=== PATIENT | female | born 1950 | race Caucasian/White ===

== ENCOUNTER 2017-06-01 19:08 | Observation (INO) | payer MEDICARE, MEDICAID ==
[~2017-06-01] VITALS: Ht 157.5 cm; Wt 130.0 kg
[~2017-06-01 19:08] MED LIST: HYDR-2768 PO; blood pressure
[2017-06-01 19:10] VITALS: BP 186/96; PULSE 81; RESP 16; TEMP 98.9; O2SAT 97
[2017-06-01 19:55] VITALS: BP 163/67; PULSE 81; RESP 18; O2SAT 97; O2SAT 98
[2017-06-01] MEDS ORDERED: LORazepam 2 MG/ML VIAL IV PUSH ONE (20:00)
[2017-06-01] MEDS ORDERED: TORS10TA2 PO (20:00)
[2017-06-01] MEDS ORDERED: ASPIRIN 325 MG TAB PO ONE (20:00)
--- NOTE | 2017-06-01 20:23 | RADRPT ---
EXAM DATE/TIME: 06/01/2017 20:11 [place] COMPARISON: No previous studies available for comparison. INDICATIONS : Chest pain MEDICAL HISTORY : None. SURGICAL HISTORY : None. ENCOUNTER: Initial ACUITY: 1 week PAIN SCORE: 8/10 LOCATION: chest FINDINGS: A single view of the chest demonstrates the lungs to be symmetrically aerated without evidence of mas s, infiltrate or effusion. The cardiomediastinal contours are unremarkable. Osseous structures are intact. CONCLUSION: No evidence of acute cardiopulmonary disease. Rd Avendano MD on June 01, 2017 at 20:22 Board Certified Radiologist. This report was verified electronically.
[2017-06-01 21:03] LABS: AUTOMATED NEUTROPHIL # 4.7 TH/MM3 (1.8-7.7); BASOPHIL # 0.1 TH/MM3 (0-0.2); BASOPHIL % 0.6 % (0.0-2.0); EOSINOPHIL # 0.2 TH/MM3 (0-0.4); EOSINOPHIL % 2.2 % (0.0-4.0); HEMATOCRIT 39.4 % (35.0-46.0); HEMO FLAGS DIFF FINAL; LYMPHOCYTE # 2.5 TH/MM3 (1.0-4.8); MEAN CELL VOLUME 88.6 FL (80.0-100.0); MEAN CORPUSCULAR HEMOGLOBIN 30.1 PG (27.0-34.0); NEUT % 58.2 % (16.0-70.0); PLATELET COUNT 230 TH/MM3 (150-450); RED BLOOD COUNT 4.44 MIL/MM3 (4.00-5.30); RED CELL DISTRIBUTION WIDTH 13.1 % (11.6-17.2); WHITE BLOOD COUNT 8.1 TH/MM3 (4.0-11.0)
[2017-06-01 21:18] LABS: ANION GAP 4 MEQ/L (5-15); BICARBONATE 30.3 MEQ/L (21.0-32.0); BLOOD UREA NITROGEN 21 MG/DL (7-18); CHLORIDE 105 MEQ/L (98-107); GLOMERULAR FILTRATION RATE 66 ML/MIN (>89); POTASSIUM 3.8 MEQ/L (3.5-5.1); SODIUM (NA) 139 MEQ/L (136-145)
--- NOTE | 2017-06-01 21:29 | PD ---
HPI Chief Complaint: Chest Pain Time Seen by Provider: 19:52 Travel History International Travel<30 days: No Contact w/Intl Traveler<30days: No Traveled to known affect area: No History of Present Illness HPI 66-year-old female that presents to the ED for evaluation of left-sided chest pain. The patient she's had this chest pain on and off for the past week. Per patient she has a history of hypertension and has had this before. Per patient she is not sure what she was diagnosed with. Per patient her heart palpitates. Per patient she's been very stressed and anxious secondary to not know what happened to her family in [place]. Per patient she cannot reach them and she is concerned about her safety. She is not sure if this is something to related to that. 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 She denies any history of heart disease in herself. Family history reported. Denies any history of high cholesterol. Per patient the pain is 8 out of 10 and sharp. It comes and goes. Feels like her heart palpitates and radiates to the left arm. Nothing seems to make it better or worse. She did not took an aspirin today. PFSH Past Medical History Asthma: Yes Depression: Yes Headaches: Yes Hypertension: Yes Musculoskeletal: Yes (CHRONIC BACK PAIN) Respiratory: Yes (cysts in right lung) Menopausal: Yes Ectopic : Yes Past Surgical History Cholecystectomy: Yes Tonsillectomy: Yes Social History Alcohol Use: Yes (OCCASIONALLY) Tobacco Use: No Substance Use: Yes (MARIJUANA) Allergies-Medications (Allergen,Severity, Reaction): Coded Allergies: Influenza Virus Vaccines (Unverified Allergy, Unknown, 06/01/17) penicillin G (Unverified Allergy, Unknown, 06/01/17) Reported Meds & Prescriptions Reported Meds & Active Scripts Active Reported Torsemide 10 Mg Tab 10 Mg PO DAILY Review of Systems Except as stated in HPI: all other systems reviewed are Neg Physical Exam Narrative GENERAL: SKIN: Warm and dry. HEAD: Atraumatic. Normocephalic. EYES: Pupils equal and round. No scleral icterus. No injection or drainage. ENT: No nasal bleeding or discharge. Mucous membranes pink and moist. Tongue is midline. No uvula deviation. NECK: Trachea midline. No JVD. CARDIOVASCULAR: Regular rate and rhythm. No murmurs, S3, S4. Some of the pain is reproducible with touch. RESPIRATORY: No accessory muscle use. Clear to auscultation. Breath sounds equal bilaterally. GASTROINTESTINAL: Abdomen soft, non-tender, nondistended. Hepatic and splenic margins not palpable. MUSCULOSKELETAL: Extremities without clubbing, cyanosis, or edema. No obvious deformities. Full range of motion of the upper and lower extremities bilaterally. 2+ pulses bilaterally. NEUROLOGICAL: Awake and alert. No obvious cranial nerve deficits. Motor grossly within normal limits. Five out of 5 muscle strength in the arms and legs. Normal speech. PSYCHIATRIC: Anxious mood and affect; insight and judgment normal. Data Data Last Documented VS Vital Signs Date Time Temp Pulse Resp B/P (MAP) Pulse Ox O2 Delivery O2 Flow Rate FiO2 06/01/17 19:56 98 Room Air 06/01/17 19:55 81 18 163/67 (99) 06/01/17 19:10 98.9 Orders Orders Electrocardiogram (06/01/17 19:40) Complete Blood Count With Diff (06/01/17 19:40) Basic Metabolic Panel (Bmp) (06/01/17 19:40) Ckmb (Isoenzyme) Profile (06/01/17 19:40) Troponin I (06/01/17 19:40) Chest, Single Ap (06/01/17 19:40) Iv Access Insert/Monitor (06/01/17 19:40) Ecg Monitoring (06/01/17 19:40) Oxygen Administration (06/01/17 19:40) Oximetry (06/01/17 19:40) Aspirin (Aspirin) (06/01/17 20:00) Lorazepam Inj (Ativan Inj) (06/01/17 20:00) Admit Order (Ed Use Only) (06/01/17 21:53) Activity Bed Rest With Brp (06/01/17 21:53) Vital Signs (Adult) Q4H (06/01/17 21:53) Cardiac Rhythm .As Directed (06/01/17 21:53) Notify Dr: Other .PRN (06/01/17 21:53) Notify Parameters (06/01/17 21:53) Resp Oxygen Nasal Cannula (06/01/17 ) Diet Npo (06/02/17 Breakfast) Ckmb (Isoenzyme) Profile (06/01/17 23:20) Ckmb (Isoenzyme) Profile (06/02/17 02:20) Troponin I (06/01/17 23:20) Troponin I (06/02/17 02:20) Electrocardiogram (06/01/17 23:20) Electrocardiogram (06/02/17 02:20) ^ Obtain (06/01/17 21:53) Sodium Chloride 0.9% Flush (Ns Flush) (06/01/17 22:00) Sodium Chloride 0.9% Flush (Ns Flush) (06/02/17 09:00) Acetaminophen (Tylenol) (06/01/17 22:00) Acetamin-Hydrocod 325-7.5 Mg ([place] 7.5 (06/01/17 22:00) Nitroglycerin 2% Oint (Nitroglycerin 2% (06/02/17 00:00) [employer] / Telemetry ZEENAT.Q8H (06/01/17 21:53) Labs Laboratory Tests Test 06/01/17 20:20 White Blood Count 8.1 TH/MM3 Red Blood Count 4.44 MIL/MM3 Hemoglobin 13.4 GM/DL Hematocrit 39.4 % Mean Corpuscular Volume 88.6 FL Mean Corpuscular Hemoglobin 30.1 PG Mean Corpuscular Hemoglobin Concent 34.0 % Red Cell Distribution Width 13.1 % Platelet Count 230 TH/MM3 Mean Platelet Volume 7.7 FL Neutrophils (%) (Auto) 58.2 % Lymphocytes (%) (Auto) 31.0 % Monocytes (%) (Auto) 8.0 % Eosinophils (%) (Auto) 2.2 % Basophils (%) (Auto) 0.6 % Neutrophils # (Auto) 4.7 TH/MM3 Lymphocytes # (Auto) 2.5 TH/MM3 Monocytes # (Auto) 0.6 TH/MM3 Eosinophils # (Auto) 0.2 TH/MM3 Basophils # (Auto) 0.1 TH/MM3 CBC Comment DIFF FINAL Differential Comment Blood Urea Nitrogen 21 MG/DL Creatinine 0.87 MG/DL Random Glucose 107 MG/DL Calcium Level 9.3 MG/DL Sodium Level 139 MEQ/L Potassium Level 3.8 MEQ/L Chloride Level 105 MEQ/L Carbon Dioxide Level 30.3 MEQ/L Anion Gap 4 MEQ/L Estimat Glomerular Filtration Rate 66 ML/MIN Total Creatine Kinase 71 U/L Troponin I LESS THAN 0.02 NG/ML MDM Medical Decision Making Medical Screen Exam Complete: Yes Emergency Medical Condition: Yes Medical Record Reviewed: Yes Interpretation(s) EKG shows sinus rhythm with no sign of acute ischemia or arrhythmia. Read by me and attending. CBC & BMP Diagram 06/01/17 20:20 Calcium Level 9.3 Last Impressions Chest X-Ray 06/01/171939 Signed Impressions: Service Date/Time: , June 01, 2017 20:11 - CONCLUSION: No evidence of acute cardiopulmonary disease. Rd Avendano MD Differential Diagnosis Chest pain versus a typical chest pain versus ACS versus anxiety versus costochondritis Narrative Course 66-year-old female that presents to the ED for evaluation of chest pain. Patient was properly examined and was found to have signs and symptoms consistent appears to be chest pain. Unclear etiology at this time. Does appear to have some anxiety in nature but cannot completely rule out ACS secondary to her medical history and comorbidities including age, hypertension, and family history. Recommendation is for aspirin and cardiac workup. Patient was given some Ativan to help calm her down. Labs and imaging showed no sign of acute disease. Patient was reassured. This time because of patient's risk factors I do recommend admission to the chest pain center for further evaluation. She is in agreement with this plan. Patient was admitted to the chest pain center. Diagnosis Primary Impression: Chest pain in adult Admitting Information Admitting Physician Requests: Observation Deepak Amor Jun 01, 2017 21:29
[2017-06-01 21:31] LABS: CREATINE KINASE 71 U/L (26-192)
[2017-06-01] MEDS ORDERED: ACETAMINOPHEN 500 MG CPLT PO PRN (22:00)
[2017-06-01] MEDS ORDERED: ACETAMINOPHEN/HYDROcodone 325 MG/7.5 MG TAB PO PRN (22:00)
[2017-06-01] MEDS ORDERED: SODIUM CHLORIDE 0.9% FLUSH 10 ML FLUSH IV FLUSH PRN (22:00)
[2017-06-01 23:36] VITALS: BP 149/78; PULSE 66; RESP 18; TEMP 98; O2SAT 97
[2017-06-02] VITALS (7 sets, daily range): BP systolic 118–164; BP diastolic 62–76; PULSE 50–62; RESP 16–18; TEMP 97.9–98.2; O2SAT 95–97
[2017-06-02 00:50] LABS: CREATINE KINASE 68 U/L (26-192)
[2017-06-02 04:26] LABS: CREATINE KINASE 58 U/L (26-192)
[2017-06-02] MEDS: NITROGLYCERIN 2% OINT 1 GM PACKET TOP SCH ×2 (06:00)
[2017-06-02] MEDS ORDERED: ONDANSETRON HCL 4 MG/2 ML VIAL IV PUSH PRN (07:45)
[2017-06-02] MEDS ORDERED: NITROGLYCERIN 0.4 MG SL 25 TABS/BTL SL PRN (07:45)
[2017-06-02] MEDS ORDERED: ASPIRIN 325 MG TAB PO SCH (09:00)
[2017-06-02] MEDS ORDERED: SODIUM CHLORIDE 0.9% FLUSH 10 ML FLUSH IV FLUSH SCH (09:00)
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
[2017-06-02] MEDS ORDERED: KETOROLAC TROMETHAMINE 30 MG/ML (IVP) VIAL IV PUSH ONE (11:00)
--- NOTE | 2017-06-02 11:48 | HHI.DCPOC ---
Discharge Care Plan Diagnosis: (1) Musculoskeletal chest pain (2) Hypertension (3) Situational stress Goals to Promote Your Health * To prevent worsening of your condition and complications * To maintain your health at the optimal level Directions to Meet Your Goals Take your medications as prescribed Follow your dietary instruction Follow activity as directed Keep your appointments as scheduled Take your immunizations and boosters as scheduled If your symptoms worsen call your PCP, if no PCP go to Urgent Care Center or Emergency Room Smoking is Dangerous to Your Health. Avoid second hand smoke Call the 24-hour hour crisis hotline for domestic abuse at Estelita Buckner Jun 02, 2017 11:48
[2017-06-02] MEDS ORDERED: TORSEMIDE 5 MG TAB PO SCH (12:15)
--- NOTE | 2017-06-02 13:45 | EKG ---
Date Performed: 06/02/2017 Time Performed: 03:27:06 PTAGE: 66 years EKG: SINUS BRADYCARDIA BORDERLINE ECG PREVIOUS TRACING : 06/01/2017 23.41 Since previous tracing, no significant change noted DOCTOR: Shane Ruiz Interpretating Date/Time 06/02/2017 13:44:46
--- NOTE | 2017-06-02 13:48 | EKG ---
Date Performed: 06/01/2017 Time Performed: 23:41:31 PTAGE: 66 years EKG: SINUS BRADYCARDIA BORDERLINE ECG PREVIOUS TRACING : 06/01/2017 19.46 Since previous tracing, no significant change noted DOCTOR: Shane Ruiz Interpretating Date/Time 06/02/2017 13:48:21
--- NOTE | 2017-06-02 13:55 | EKG ---
Date Performed: 06/01/2017 Time Performed: 19:46:49 PTAGE: 66 years EKG: Sinus rhythm NORMAL ECG NO PREVIOUS TRACING DOCTOR: Shane Ruiz Interpretating Date/Time 06/02/2017 13:54:27
== END 2017-06-02 14:31 | disposition home or self-care (01) ==
LOC: NEPC 19:08 → NEDA 21:57 → NEPFCDU 23:14
PROVIDERS: ADMIT Internal Medicine Cardiovascular Disease; ATTEND Internal Medicine Cardiovascular Disease
DX: R07.89 Other chest pain (principal); I10 Essential (primary) hypertension; F41.9 Anxiety disorder, unspecified; F12.90 Cannabis use, unspecified, uncomplicated; J45.909 Unspecified asthma, uncomplicated
CPT/HCPCS: 71010; 80048; 82550; 84484; 85025; 93005; 96374; 96375; 99285; G0378; J1885; J2060

== ENCOUNTER 2017-10-12 13:31 | Emergency (ER) | payer MEDICARE, MEDICAID ==
[~2017-10-12] VITALS: Ht 157.5 cm; Wt 136.4 kg
[~2017-10-12 13:31] MED LIST changes: -HYDR-2768 PO; +TORS10TA2 PO; -blood pressure
[2017-10-12 13:32] VITALS: BP 170/71; PULSE 71; RESP 14; TEMP 97.2; O2SAT 97
[2017-10-12] MEDS ORDERED: MORPHINE SULFATE 4 MG/ML INJ IV PUSH ONE (15:30)
--- NOTE | 2017-10-12 15:32 | PD ---
HPI Chief Complaint: Abdominal Pain Time Seen by Provider: 15:25 Travel History International Travel<30 days: No Contact w/Intl Traveler<30days: No Traveled to known affect area: No History of Present Illness HPI This is a 67-year-old female who presents to the emergency department with 2 days of right lower quadrant abdominal pain, constant, moderate severity, radiating to her back with no associated fevers, chills, vomiting or diarrhea. Patient reports that her only abdominal surgery was an ectopic when she was very young. She says she has had this pain once before earlier this year and they were unable to figure out what it was. PFSH Past Medical History Asthma: Yes Depression: Yes Cardiovascular Problems: Yes Diminished Hearing: No Headaches: Yes Hypertension: Yes Musculoskeletal: Yes (CHRONIC BACK PAIN) Respiratory: Yes Tetanus Vaccination: > 5 Years Influenza Vaccination: No ?: Not Menopausal: Yes Ectopic : Yes Past Surgical History Cholecystectomy: Yes Tonsillectomy: Yes Social History Alcohol Use: Yes (OCCASIONALLY) Tobacco Use: No Substance Use: Yes (MARIJUANA) Allergies-Medications (Allergen,Severity, Reaction): Coded Allergies: Influenza Virus Vaccines (Unverified Allergy, Unknown, 10/12/17) penicillin G (Unverified Allergy, Unknown, 10/12/17) Reported Meds & Prescriptions Reported Meds & Active Scripts Active Reported Torsemide 10 Mg Tab 10 Mg PO DAILY Review of Systems Except as stated in HPI: all other systems reviewed are Neg Physical Exam Narrative GENERAL:Well appearing, no acute distress SKIN: Focused skin assessment warm and dry. HEAD: Atraumatic. Normocephalic. EYES: Pupils equal and round. No injection or drainage. ENT: Moist mucous membranes NECK: Trachea midline. CARDIOVASCULAR: Regular rate and rhythm. No murmur appreciated. RESPIRATORY: Clear to auscultation. Breath sounds equal bilaterally. GASTROINTESTINAL: Abdomen soft, tender to palpation in the right lower quadrant with no rebound or guarding. MUSCULOSKELETAL: No obvious deformities. NEUROLOGICAL: Awake and alert. No obvious cranial nerve deficits. Moving all extremities. PSYCHIATRIC: Appropriate mood and affect; insight and judgment normal. Data Data Last Documented VS Vital Signs Date Time Temp Pulse Resp B/P (MAP) Pulse Ox O2 Delivery O2 Flow Rate FiO2 10/12/17 13:32 97.2 71 14 170/71 (104) 97 Orders Orders Complete Blood Count With Diff (10/12/17 14:04) Comprehensive Metabolic Panel (10/12/17 14:04) Lipase (10/12/17 14:04) Prothrombin Time / Inr (Pt) (10/12/17 14:04) Act Partial Throm Time (Ptt) (10/12/17 14:04) Urinalysis - C+S If Indicated (10/12/17 14:04) Ct Abd/Pel W Iv Contrast(Rout) (10/12/17 ) Morphine Inj (Morphine Inj) (10/12/17 15:30) Labs Laboratory Tests Test 10/12/17 15:30 White Blood Count 8.4 TH/MM3 Red Blood Count 4.34 MIL/MM3 Hemoglobin 13.3 GM/DL Hematocrit 38.3 % Mean Corpuscular Volume 88.1 FL Mean Corpuscular Hemoglobin 30.6 PG Mean Corpuscular Hemoglobin Concent 34.7 % Red Cell Distribution Width 13.3 % Platelet Count 218 TH/MM3 Mean Platelet Volume 7.5 FL Neutrophils (%) (Auto) 57.3 % Lymphocytes (%) (Auto) 31.7 % Monocytes (%) (Auto) 8.0 % Eosinophils (%) (Auto) 2.6 % Basophils (%) (Auto) 0.4 % Neutrophils # (Auto) 4.8 TH/MM3 Lymphocytes # (Auto) 2.7 TH/MM3 Monocytes # (Auto) 0.7 TH/MM3 Eosinophils # (Auto) 0.2 TH/MM3 Basophils # (Auto) 0.0 TH/MM3 CBC Comment DIFF FINAL Differential Comment Prothrombin Time 10.1 SEC Prothromb Time International Ratio 1.0 RATIO Activated Partial Thromboplast Time 28.3 SEC Urine Color YELLOW Urine Turbidity CLEAR Urine pH 5.5 Urine Specific [place] 1.014 Urine Protein NEG mg/dL Urine Glucose (UA) NEG mg/dL Urine Ketones NEG mg/dL Urine Occult Blood NEG Urine Nitrite NEG Urine Bilirubin NEG Urine Urobilinogen LESS THAN 2.0 MG/DL Urine Leukocyte Esterase NEG Urine RBC 2 /hpf Urine WBC 1 /hpf Urine Squamous Epithelial Cells 4 /hpf Urine Bacteria OCC /hpf Urine Mucus FEW /lpf Microscopic Urinalysis Comment CULT NOT INDICATED Blood Urea Nitrogen 15 MG/DL Creatinine 0.74 MG/DL Random Glucose 86 MG/DL Total Protein 7.8 GM/DL Albumin 3.6 GM/DL Calcium Level 9.5 MG/DL Alkaline Phosphatase 99 U/L Aspartate Amino Transf (AST/SGOT) 19 U/L Alanine Aminotransferase (ALT/SGPT) 23 U/L Total Bilirubin 0.3 MG/DL Sodium Level 137 MEQ/L Potassium Level 3.9 MEQ/L Chloride Level 104 MEQ/L Carbon Dioxide Level 28.0 MEQ/L Anion Gap 5 MEQ/L Estimat Glomerular Filtration Rate 79 ML/MIN Lipase 94 U/L MDM Medical Decision Making Medical Screen Exam Complete: Yes Emergency Medical Condition: Yes Interpretation(s) No leukocytosis Electrolytes are reassuring Lipase is normal Urinalysis is negative for infection Differential Diagnosis Appendicitis, nephrolithiasis, colitis, diverticulitis Narrative Course This is a 67-year-old female who presents to the emergency department with right lower quadrant abdominal pain. This is been going on for 2 days. She is tender on abdominal exam mostly in the right lower quadrant. Vital signs are all reassuring. Labs were obtained which are unremarkable. CT imaging will be obtained and disposition will be made by oncoming provider. I doubt patient has surgical etiology of her pain. Deanna Dias MD Oct 12, 2017 15:32
[2017-10-12 15:58] LABS: AUTOMATED NEUTROPHIL # 4.8 TH/MM3 (1.8-7.7); BASOPHIL % 0.4 % (0.0-2.0); EOSINOPHIL # 0.2 TH/MM3 (0-0.4); EOSINOPHIL % 2.6 % (0.0-4.0); HEMATOCRIT 38.3 % (35.0-46.0); HEMOGLOBIN 13.3 GM/DL (11.6-15.3); LYMPH % 31.7 % (9.0-44.0); LYMPHOCYTE # 2.7 TH/MM3 (1.0-4.8); MEAN CELL VOLUME 88.1 FL (80.0-100.0); MEAN CORPUSCULAR HEMOGLOBIN 30.6 PG (27.0-34.0); MEAN CORPUSCULAR HGB CONC 34.7 % (32.0-36.0); MEAN PLATELET VOLUME 7.5 FL (7.0-11.0); MONOCYTE # 0.7 TH/MM3 (0-0.9); NEUT % 57.3 % (16.0-70.0); PLATELET COUNT 218 TH/MM3 (150-450); RED BLOOD COUNT 4.34 MIL/MM3 (4.00-5.30); RED CELL DISTRIBUTION WIDTH 13.3 % (11.6-17.2); WHITE BLOOD COUNT 8.4 TH/MM3 (4.0-11.0)
[2017-10-12 16:00] VITALS: BP 156/71; PULSE 88; RESP 18; O2SAT 97
[2017-10-12 16:03] LABS: PROTHROMBIN TIME - PATIENT 10.1 SEC (9.8-11.6)
[2017-10-12 16:08] LABS: BACTERIA, URINE OCC /hpf; BILIRUBIN, URINE NEG (NEG); BLOOD, URINE NEG (NEG); GLUCOSE,URINE NEG (NEG); KETONE, URINE NEG (NEG); MUCUS URINE FEW /lpf (OCC); NITRITE,URINE NEG (NEG); PH, URINE 5.5 (5.0-8.5); SQUAMOUS EPITHELIAL CELL URINE 4 /hpf (0-5); URINE COLOR YELLOW (YELLW/STRAW); URINE LEUKOCYTE ESTERASE NEG (NEG)
[2017-10-12 16:10] LABS: ALBUMIN 3.6 GM/DL (3.4-5.0); ALT (GPT) 23 U/L (10-53); AST (GOT) 19 U/L (15-37); BLOOD UREA NITROGEN 15 MG/DL (7-18); CALCIUM 9.5 MG/DL (8.5-10.1); CHLORIDE 104 MEQ/L (98-107); CREATININE 0.74 MG/DL (0.50-1.00); GLOMERULAR FILTRATION RATE 79 ML/MIN (>89); GLUCOSE,RANDOM 86 MG/DL (74-106); SODIUM (NA) 137 MEQ/L (136-145)
[2017-10-12 16:11] LABS: ALKALINE PHOSPHATASE 99 U/L (45-117); TOTAL BILIRUBIN ADULT 0.3 MG/DL (0.2-1.0); TOTAL PROTEIN 7.8 GM/DL (6.4-8.2)
[2017-10-12] MEDS ORDERED: IOHEXOL 350 MG/ML 10 ML VIAL (for RAD DIAG) IVCONTRAST ONE (17:59)
[2017-10-12 18:00] VITALS: BP 158/71; PULSE 72; RESP 19; O2SAT 96
--- NOTE | 2017-10-12 18:05 | RADRPT ---
EXAM DATE/TIME: 10/12/2017 17:36 [place] COMPARISON: No previous studies available for comparison. INDICATIONS : Patient complains of left lower quadrant pain. IV CONTRAST: 98 cc Omnipaque 350 (iohexol) IV ORAL CONTRAST: No oral contrast ingested. RADIATION DOSE: 16.96 CTDIvol (mGy) MEDICAL HISTORY : Hypertension. SURGICAL HISTORY : Cholecystectomy. ENCOUNTER: Initial ACUITY: 1 day PAIN SCALE: 10/10 LOCATION: Right lower quadrant TECHNIQUE: Volumetric scanning of the abdomen and pelvis was performed. Using automated exposure control and ad justment of the mA and/or kV according to patient size, radiation dose was kept as low as reasonably achievable to obtain optimal diagnostic quality images. DICOM format image data is available electro nically for review and comparison. FINDINGS: LOWER LUNGS: The visualized lower lungs are clear. LIVER: Mild hepatomegaly is noted. No focal mass is noted. There is no dilation of the biliary tree. Status post cholecystectomy. No calcified gallstones. SPLEEN: Mild splenomegaly is noted. PANCREAS: Within normal limits. KIDNEYS: Normal in size and shape. There is no solid mass, stone or hydronephrosis. Two left renal cysts are noted with the larger measuring 3 cm the ADRENAL GLANDS: Within normal limits. VASCULAR: There is no aortic aneurysm. BOWEL/MESENTERY: Uncomplicated colonic diverticulosis is noted. No acute diverticulitis is noted. The appendix is norm al. ABDOMINAL WALL: Within normal limits. RETROPERITONEUM: There is no lymphadenopathy. BLADDER: No wall thickening or mass. REPRODUCTIVE: Within normal limits. INGUINAL: There is no lymphadenopathy or hernia. MUSCULOSKELETAL: Degenerative changes and scoliosis of the thoraco-lumbar spine are noted. Multilevel spinal stenoses are noted within the lumbar spine. CONCLUSION: 1. Uncomplicated colonic diverticulosis. 2. Mild hepatosplenomegaly. 3. Multilevel spinal stenoses within the lumbar spine. 4. Degenerative changes and scoliosis of the thoracolumbar spine. Andrei Garrett MD on October 12, 2017 at 17:57 Board Certified Radiologist. This report was verified electronically.
--- NOTE | 2017-10-12 18:17 | PD ---
Physical Exam Date Seen by Provider: Oct 12, 2017 Time Seen by Provider: 18:15 Narrative 67-year-old female came to the emergency room with history of right lower quadrant pain. She was seen by the previous ER physician. Please refer to her history and physical for further details. Sign out was to follow-up on the CAT scan report. Prior to that she had had blood test and urinalysis done which were all within normal limits. The CAT scan results just came back and does not show any acute anomaly. I went and saw the patient and discussed the results with her. She is reassured that she does not have appendicitis. I will discharge her home. Data Data Last Documented VS Vital Signs Date Time Temp Pulse Resp B/P (MAP) Pulse Ox O2 Delivery O2 Flow Rate FiO2 10/12/17 18:30 10/12/17 18:00 72 19 96 Room Air 10/12/17 13:32 97.2 Orders Orders Complete Blood Count With Diff (10/12/17 14:04) Comprehensive Metabolic Panel (10/12/17 14:04) Lipase (10/12/17 14:04) Prothrombin Time / Inr (Pt) (10/12/17 14:04) Act Partial Throm Time (Ptt) (10/12/17 14:04) Urinalysis - C+S If Indicated (10/12/17 14:04) Ct Abd/Pel W Iv Contrast(Rout) (10/12/17 ) Morphine Inj (Morphine Inj) (10/12/17 15:30) Iohexol 350 Inj (Omnipaque 350 Inj) (10/12/17 17:59) Ed Discharge Order (10/12/17 18:15) Labs Laboratory Tests Test 10/12/17 15:30 White Blood Count 8.4 TH/MM3 Red Blood Count 4.34 MIL/MM3 Hemoglobin 13.3 GM/DL Hematocrit 38.3 % Mean Corpuscular Volume 88.1 FL Mean Corpuscular Hemoglobin 30.6 PG Mean Corpuscular Hemoglobin Concent 34.7 % Red Cell Distribution Width 13.3 % Platelet Count 218 TH/MM3 Mean Platelet Volume 7.5 FL Neutrophils (%) (Auto) 57.3 % Lymphocytes (%) (Auto) 31.7 % Monocytes (%) (Auto) 8.0 % Eosinophils (%) (Auto) 2.6 % Basophils (%) (Auto) 0.4 % Neutrophils # (Auto) 4.8 TH/MM3 Lymphocytes # (Auto) 2.7 TH/MM3 Monocytes # (Auto) 0.7 TH/MM3 Eosinophils # (Auto) 0.2 TH/MM3 Basophils # (Auto) 0.0 TH/MM3 CBC Comment DIFF FINAL Differential Comment Prothrombin Time 10.1 SEC Prothromb Time International Ratio 1.0 RATIO Activated Partial Thromboplast Time 28.3 SEC Urine Color YELLOW Urine Turbidity CLEAR Urine pH 5.5 Urine Specific [place] 1.014 Urine Protein NEG mg/dL Urine Glucose (UA) NEG mg/dL Urine Ketones NEG mg/dL Urine Occult Blood NEG Urine Nitrite NEG Urine Bilirubin NEG Urine Urobilinogen LESS THAN 2.0 MG/DL Urine Leukocyte Esterase NEG Urine RBC 2 /hpf Urine WBC 1 /hpf Urine Squamous Epithelial Cells 4 /hpf Urine Bacteria OCC /hpf Urine Mucus FEW /lpf Microscopic Urinalysis Comment CULT NOT INDICATED Blood Urea Nitrogen 15 MG/DL Creatinine 0.74 MG/DL Random Glucose 86 MG/DL Total Protein 7.8 GM/DL Albumin 3.6 GM/DL Calcium Level 9.5 MG/DL Alkaline Phosphatase 99 U/L Aspartate Amino Transf (AST/SGOT) 19 U/L Alanine Aminotransferase (ALT/SGPT) 23 U/L Total Bilirubin 0.3 MG/DL Sodium Level 137 MEQ/L Potassium Level 3.9 MEQ/L Chloride Level 104 MEQ/L Carbon Dioxide Level 28.0 MEQ/L Anion Gap 5 MEQ/L Estimat Glomerular Filtration Rate 79 ML/MIN Lipase 94 U/L MDM Supervised Visit with KD: No Diagnosis Primary Impression: Abdominal pain Qualified Codes: R10.31 - Right lower quadrant pain Referrals: Primary Care Physician Additional Instruction: Take Tylenol/Motrin/ibuprofen/Advil for pain as needed. Get some bedrest. Return to ER if condition worsens or any other new concerns. Otherwise follow- up with your primary care. Med/Other Pt SpecificInfo: No Change to Meds Disposition: 01 DISCHARGE HOME Condition: Stable Kellie Hernandez MD Oct 12, 2017 18:17
== END 2017-10-12 18:42 | disposition home or self-care (01) ==
LOC: NEPD 13:31
DX: R10.31 Right lower quadrant pain (principal); I10 Essential (primary) hypertension; F12.90 Cannabis use, unspecified, uncomplicated
CPT/HCPCS: 74177; 80053; 81001; 83690; 85025; 85610; 85730; 96374; 99284; J2270; Q9967